=== PATIENT | female | born 1960 | race Asian ===

== ENCOUNTER 2019-12-12 16:11 | Inpatient (IN) | payer MEDICAID ==
[~2019-12-12] VITALS: Ht 134.6 cm; Wt 48.9 kg
[2019-12-12 16:39] LABS: BASOPHILS # (AUTO) 0.1 X10'3 (0-0.2); BASOPHILS % (AUTO) 0.5 % (0-1); EOSINOPHILS # (AUTO) 0.2 X10'3 (0-0.9); EOSINOPHILS % (AUTO) 1.7 % (0-6); HEMATOCRIT 40.5 % (35.0-45.0); HEMOGLOBIN 13.6 g/dl (12.0-16.0); LYMPHOCYTES # (AUTO) 3.6 X10'3 (1.1-4.8); LYMPHOCYTES % (AUTO) 30.8 % (21-51); MEAN CORPUSCULAR HEMOGLOBIN 30.2 PG (27.0-31.0); MEAN CORPUSCULAR HGB CONC 33.6 g/dL (33.0-36.5); MEAN PLATELET VOLUME 7.2 FL (7.4-10.4); MONOCYTES # (AUTO) 0.8 X10'3 (0-0.9); MONOCYTES % (AUTO) 6.6 % (2-12); NEUTROPHILS # (AUTO) 7.1 X10'3 (1.8-7.7); NEUTROPHILS % (AUTO) 60.4 % (42-75); PLATELET COUNT 333 X10'3 (140-440); RED BLOOD COUNT 4.51 X10'6 (4.20-5.60); RED CELL DISTRIBUTION WIDTH 12.9 % (11.5-14.5); WHITE BLOOD COUNT 11.7 X10'3 (4.5-11.0)
[2019-12-12 16:51] LABS: PARTIAL THROMBOPLASTIN TIME 27 SECONDS (22-32)
[2019-12-12 16:57] LABS: ALANINE AMINOTRANSFERASE 22 U/L (12-78); ALBUMIN 3.9 G/DL (3.4-5.0); ALBUMIN/GLOBULIN RATIO 0.9 (1.1-1.5); ALKALINE PHOSPHATASE 101 IU/L (46-116); ANION GAP 6 (8-16); ASPARTATE AMINO TRANSFERASE 19 U/L (10-37); BILIRUBIN,TOTAL 0.4 MG/DL (0.1-1.0); BLOOD UREA NITROGEN 12 MG/DL (7-18); BUN/CREATININE RATIO 20.3 (6.6-38.0); CALCIUM 9.7 MG/DL (8.5-10.1); CHLORIDE 106 MMOL/L (99-107); CREATININE 0.59 MG/DL (0.40-0.90); GLUCOSE 136 MG/DL (70-104); POTASSIUM 3.8 MMOL/L (3.5-5.1); SODIUM 142 MMOL/L (135-145); TOTAL CARBON DIOXIDE 30.1 MMOL/L (24-32); TOTAL PROTEIN 8.2 G/DL (6.4-8.2); eGFR > 90 ML/MIN
[2019-12-12] MEDS ORDERED: iohexol 350MG/ML 100ml bottle IV ONE (17:12)
[2019-12-12] MEDS ORDERED: aspirin 325mg tablet PO ONE (17:30)
--- NOTE | 2019-12-12 17:47 | NUR ---
Assessed patient for level one stroke alert at 1655. Immediately noted was that the patient's last known normal was unfortunately around 1200 today, when she laid down to take a nap. Pt. reports even prior to that she felt weak and had a headace, but had not noticed any unilateral weakness or numbness. Nor had she noticed a change in vision. At this time, she reports numbness and lack of coordination to the left arm and leg. Numbness in the left face. Very slight drift noted to [place]. Reports weakness to the left leg. Also, pt. reports a significant visual deficit in the right eye and that it "feels swollen." no field cut discerned to the left eye on exam, both goodson seem to be affected on the right. Changed to level 2 stroke d/t unknown onset, however discussed with ER MD and taken urgently back to CT for CTA and r/o LVO. Teleneurology has seen patient and waiting CTA results.
[2019-12-12] MEDS ORDERED: aspirin 300mg supp.rect RC ONE (18:05)
[2019-12-12] MEDS ORDERED: ketorolac trometh. 30mg/ml inj. IV ONE (20:05)
[2019-12-12] MEDS ORDERED: normal saline 1000ml 1,000 ML IV SCH (20:28)
[2019-12-12] MEDS ORDERED: magnesium 2GM in 50ml NS 50 ML IV PRN (20:30)
[2019-12-12] MEDS ORDERED: magnesium Cl slow-release 64mg tablet PO PRN (20:30)
[2019-12-12] MEDS ORDERED: ondansetron/PF 4mg/2ml inj IV PRN (20:30)
[2019-12-12] MEDS ORDERED: potassium CL 10mEq/100ml bag 100 ML IV PRN ×2 (20:30)
[2019-12-12] MEDS ORDERED: magnesium 4gm in 100ml NS 100 ML IV PRN (20:30)
[2019-12-12] MEDS ORDERED: potassium Cl 20 mEq SR tablet PO PRN ×2 (20:30)
[2019-12-12] MEDS ORDERED: LOSA25TA41 PO (21:08)
[2019-12-12] MEDS ORDERED: GLIP5TAB13 PO (21:08)
[2019-12-12] MEDS ORDERED: ATOR20TA66 PO (21:08)
[2019-12-12] MEDS ORDERED: METF-438 PO (21:08)
[2019-12-12] MEDS ORDERED: CITA-311 PO (21:10)
[2019-12-12 22:30] VITALS: BP 136/53
[2019-12-12] MEDS ORDERED: aspirin 325mg tablet PO SCH (23:30)
[2019-12-12] MEDS ORDERED: aspirin 81mg tablet.DR PO SCH (23:33)
[2019-12-13] MEDS ORDERED: dextrose 50%-water 50ml dispensing syringe IV PRN ×2
[2019-12-13] MEDS ORDERED: dextrose ORAL solution 15 GM/59 ML bottle PO PRN ×2
[2019-12-13] MEDS ORDERED: insulin Lispro (HumaLOG) vial - multi-dose SQ SCH
[2019-12-13] MEDS ORDERED: MESSAGE TO PHARMACY PO ONE
[2019-12-13] MEDS ORDERED: glucagon, human recombinant 1mg kit SUBCUT PRN
[2019-12-13] MEDS: clopidogrel 75mg tablet PO SCH ×2 (00:36→07:57)
[2019-12-13 02:00] VITALS: BP 112/47
[2019-12-13] MEDS: acetaminophen 325mg tablet PO PRN ×2 (05:18→11:21)
[2019-12-13 06:00] VITALS: BP 122/53
--- NOTE | 2019-12-13 06:17 | NUR ---
REPORT GIVEN TO PIPO CHAN
[2019-12-13 06:23] LABS: BASOPHILS % (AUTO) 0.4 % (0-1); EOSINOPHILS # (AUTO) 0.1 X10'3 (0-0.9); EOSINOPHILS % (AUTO) 1.4 % (0-6); HEMOGLOBIN 12.1 g/dl (12.0-16.0); LYMPHOCYTES # (AUTO) 3.1 X10'3 (1.1-4.8); LYMPHOCYTES % (AUTO) 36.4 % (21-51); MEAN CORPUSCULAR HEMOGLOBIN 30.4 PG (27.0-31.0); MEAN CORPUSCULAR HGB CONC 33.7 g/dL (33.0-36.5); MEAN CORPUSCULAR VOLUME 90.2 FL (78-98); MEAN PLATELET VOLUME 7.4 FL (7.4-10.4); MONOCYTES # (AUTO) 0.5 X10'3 (0-0.9); NEUTROPHILS # (AUTO) 4.7 X10'3 (1.8-7.7); NEUTROPHILS % (AUTO) 55.8 % (42-75); PLATELET COUNT 278 X10'3 (140-440); RED BLOOD COUNT 3.99 X10'6 (4.20-5.60); WHITE BLOOD COUNT 8.5 X10'3 (4.5-11.0)
--- NOTE | 2019-12-13 06:33 | NUR ---
Patient in room [facility]. I have received report from Imelda CHAN and had the opportunity to ask questions and assume patient care.
[2019-12-13 06:40] LABS: ALBUMIN 3.3 G/DL (3.4-5.0); ANION GAP 7 (8-16); BLOOD UREA NITROGEN 16 MG/DL (7-18); BUN/CREATININE RATIO 26.2 (6.6-38.0); CHLORIDE 109 MMOL/L (99-107); CREATININE 0.61 MG/DL (0.40-0.90); GLUCOSE 125 MG/DL (70-104); LDL CHOLESTEROL 61 MG/DL (50-100); MAGNESIUM 1.5 MG/DL (1.5-2.4); POTASSIUM 3.9 MMOL/L (3.5-5.1); SODIUM 144 MMOL/L (135-145); TOTAL CARBON DIOXIDE 28.5 MMOL/L (24-32); eGFR > 90 ML/MIN
[2019-12-13] MEDS ORDERED: K and/or MAG REPLACEMENT MC SCH (08:00)
[2019-12-13] MEDS ORDERED: atorvastatin 20mg tablet PO SCH (08:00)
--- NOTE | 2019-12-13 08:44 | NUR ---
Marshal [id number] Re: Karthik Vargas Do you want a MRA ordered?
--- NOTE | 2019-12-13 09:34 | NUR ---
patient complains of blurry vision in both eyes. Pt able to see fingers and count correct numbers of fingers when asked Addendum: 12/13/19 at 0936 by Marshal See RN Amended: Links added.
[2019-12-13 09:56] LABS: CHOL/HDL RATIO 2.5 (0.00-4.99); CHOLESTEROL 114 MG/DL (0-200); HDL CHOLESTEROL 46 MG/DL (35-60); TRIGLYCERIDES 75 MG/DL (20-135)
[2019-12-13 10:00] VITALS: BP 126/63
[2019-12-13] MEDS ORDERED: pneumococcal 23-VAL P-sac vacc 25 mcg/0.5ml vial IMVAC ONE (10:00)
--- NOTE | 2019-12-13 10:30 | NUR ---
DM Consult: A1c cancelled hx T2DM; LANETTE d/w RN regarding A1C this admit since no A1C hx. Blood glucose not meeting protocol for insulin coverage. Addendum: 12/13/19 at [address] Amended: Links added.
[2019-12-13 11:11] LABS: HEMOGLOBIN A1C 7.7 % (4.5-6.2)
--- NOTE | 2019-12-13 11:28 | NUR ---
Marshal [id number] Re: Karthik Vargas MRI image report is done.
--- NOTE | 2019-12-13 11:46 | NUR ---
called Nicki Blanchard for patient to see if patient can get a sooner date for her eye appointment. Nicki blanchard put her on the wait list if anyone calls in the patient will be moved up in position.
--- NOTE | 2019-12-13 11:56 | NUR ---
F/u: Pt A1C 7.7. Pt seen by LANETTE for written/verbal DM ed w/ RD contact information provided. Pt declines questions/concerns at this time. Addendum: 12/13/19 at [address] Amended: Links added.
[2019-12-13] MEDS ORDERED: ASPI-1071 PO (12:14)
[2019-12-13] MEDS ORDERED: CLOP75TA35 PO (12:14)
--- NOTE | 2019-12-13 14:51 | NUR ---
Safe discharge home with family. All personal items with patient.
[2019-12-13] MEDS ORDERED: insulin glargine (Lantus) pen - multi-dose SQ SCH (21:00)
== END 2019-12-13 14:45 | disposition home or self-care (01) | DRG 47 ==
LOC: ER 16:12 → ED HOLD 20:55 → EDBEDREQ 20:57 → ORTHO 4S 22:05
PROVIDERS: ADMIT Internal Medicine; ATTEND Internal Medicine
PROC: B3251ZZ Computerized Tomography (CT Scan) of Bilateral Common Carotid Arteries using Low Osmolar Contrast (ICD-10-PCS; 2019-12-12)
PROC: B32G1ZZ Computerized Tomography (CT Scan) of Bilateral Vertebral Arteries using Low Osmolar Contrast (ICD-10-PCS; 2019-12-12)
PROC: B3281ZZ Computerized Tomography (CT Scan) of Bilateral Internal Carotid Arteries using Low Osmolar Contrast (ICD-10-PCS; 2019-12-12)
PROC: 3E0234Z Introduction of Serum, Toxoid and Vaccine into Muscle, Percutaneous Approach (ICD-10-PCS; principal; 2019-12-13)
DX: G45.9 Transient cerebral ischemic attack, unspecified (principal); E11.9 Type 2 diabetes mellitus without complications; E78.5 Hyperlipidemia, unspecified; F32.9 Major depressive disorder, single episode, unspecified; I10 Essential (primary) hypertension; Z60.2 Problems related to living alone; Z79.02 Long term (current) use of antithrombotics/antiplatelets; Z79.84 Long term (current) use of oral hypoglycemic drugs; Z79.899 Other long term (current) drug therapy; Z23 Encounter for immunization; Z88.5 Allergy status to narcotic agent
CPT/HCPCS: 36415; 70450; 70496; 70498; 70544; 70551; 71045; 80048; 80053; 80061; 82948; 83036; 83735; 84484; 85025; 85610; 85730; 86885; 86900; 86901; 87081; 90732; 92508; 92616; 93005; 93306; 96374; 97116; 97162; 97530; 99285; G0378; J1815; J1885; Q9967

== ENCOUNTER 2020-08-06 07:11 | Outpatient (CLI) | payer MEDICAID ==
[~2020-08-06 07:11] MED LIST: ASPI-1071 PO; ATOR20TA66 PO; CITA-311 PO; CLOP75TA35 PO; GLIP5TAB13 PO; LOSA25TA41 PO; METF-438 PO
== END 2020-08-06 23:59 | disposition home or self-care (01) ==
LOC: RT 07:11
PROVIDERS: ATTEND Physician Assistant
DX: R06.2 Wheezing (principal)
CPT/HCPCS: 94010

== ENCOUNTER 2021-07-06 07:31 | Emergency (ER) | payer MEDICAID ==
[~2021-07-06] VITALS: Ht 142.2 cm; Wt 52.7 kg
[~2021-07-06 07:31] MED LIST changes: +CLOP75TA34 PO; -CLOP75TA35 PO
[2021-07-06] MEDS ORDERED: acetaminophen 325mg tablet PO ONE (11:20)
[2021-07-06 11:27] VITALS: BP 126/56
== END 2021-07-06 13:39 | disposition home or self-care (01) ==
LOC: ER 07:31
DX: M79.604 Pain in right leg (principal); M79.89 Other specified soft tissue disorders; I10 Essential (primary) hypertension; E11.9 Type 2 diabetes mellitus without complications; Z88.5 Allergy status to narcotic agent; Z79.82 Long term (current) use of aspirin; Z79.01 Long term (current) use of anticoagulants; Z79.84 Long term (current) use of oral hypoglycemic drugs; Z79.899 Other long term (current) drug therapy
CPT/HCPCS: 93971; 99283; 99284